=== PATIENT | female | born 1970 | race Caucasian/White ===

== ENCOUNTER 2018-09-30 16:09 | Emergency (ER) | payer OTHER ==
[2018-09-30 16:47] VITALS: BP 107/77
[2018-09-30] MEDS ORDERED: Tetan/Diph/Pertus SYR(Tdap)* 0.5 ML SYR(BOOSTRIX) use SYR IM ONE (16:53)
--- NOTE | 2018-09-30 17:15 | UC ---
Laceration HPI - HPI Summary HPI Summary: Pt presents with c/o laceration to left index finger. Pt was using a knife to cut head of lettuce from garden and cut her left index finger. Pt needs tetanus. Pt states that at work they applied a clot promoter. - History Of Current Complaint Chief Complaint: UCLaceration Stated Complaint: LEFT INDEX FINGER LACERATION Time Seen by Provider: 09/30/18 16:52 Hx Obtained From: Patient Hx Last Menstrual Period: 09/06 Laceration Location: Finger - left index finger Mechanism Of Injury: Sharp Trauma Onset/Duration: Sudden Onset Severity: Mild Pain Intensity: 4 Aggravating Factors: Position, Movement - Allergies/Home Medications Allergies/Adverse Reactions: Allergies Allergy/AdvReac Type Severity Reaction Status Date / Time clindamycin Allergy Rash Verified 09/30/18 16:42 Sulfa (Sulfonamide Allergy Rash Verified 09/30/18 16:42 Antibiotics) PMH/Surg Hx/FS Hx/Imm Hx Previously Healthy: Yes - Surgical History Surgical History: Yes Surgery Procedure, Year, and Place: tonsils, right breast 2015 - Family History Known Family History: Positive: Cardiac Disease - grandfather, Hypertension - mother Negative: Diabetes - Social History Occupation: Employed Full-time Lives: With Family Alcohol Use: Occasionally Substance Use Type: None Smoking Status (MU): Never Smoked Tobacco Have You Smoked in the Last Year: No - Immunization History Most Recent Influenza Vaccination: no Most Recent Tetanus Shot: unknown Review of Systems All Other Systems Reviewed And Are Negative: Yes Constitutional: Positive: Negative Skin: Positive: Other - laceration Eyes: Positive: Negative ENT: Positive: Negative Respiratory: Positive: Negative Cardiovascular: Positive: Negative Gastrointestinal: Positive: Negative Genitourinary: Positive: Negative Motor: Positive: Negative Neurovascular: Positive: Negative Musculoskeletal: Positive: Myalgia - at laceration site Neurological: Positive: Negative Psychological: Positive: Negative Is Patient Immunocompromised?: No Physical Exam Triage Information Reviewed: Yes Appearance: Well-Appearing Vital Signs: Initial Vital Signs Temp 98.5 F 09/30/18 16:43 Pulse 60 09/30/18 16:43 Resp 17 09/30/18 16:43 BP 107/77 09/30/18 16:43 Pulse Ox 100 09/30/18 16:43 Vital Signs Reviewed: Yes Eye Exam: Normal ENT Exam: Normal Dental Exam: Normal Neck exam: Normal Respiratory: Positive: No respiratory distress Musculoskeletal Exam: Normal Musculoskeletal: Positive: Strength Intact, ROM Intact Psychological Exam: Normal Skin Exam: Other - laceration dorsal aspect of left index finger at just proximal to MIP joint. Laceration Repair - Laceration Repair 1 Description: Linear Laceration Size After Repair: Length (cm) - 2, Width (mm) - 2, Depth (mm) - 3 Modified For Repair: No Cleansing Completed Via Routine Prep: Yes Irrigation With Pressure Irrigation Device: Yes Closure Material: Skin Adhesive, SteriStrips Closure Method: Single Layer Suture Of: Skin Laceration Course/Dx - Differential Dx - Laceration/Wound Differental Diagnoses: Laceration - Diagnosis Provider Diagnosis: Laceration of left index finger Discharge - Sign-Out/Discharge Documenting (check all that apply): Patient Departure All imaging exams completed and their final reports reviewed: No Studies - Discharge Plan Condition: Stable Disposition: HOME Patient Education Materials: Finger Laceration (ED), Skin Adhesive Care (ED), Steristrips (ED) Referrals: [facility] [Outside] - If Needed Non Staff,Doctor [Primary Care Provider] - Additional Instructions: Please change your dressing daily or more frequently if it becomes soiled or wet. Pleas wear the splint for 5-7 days. - Billing Disposition and Condition Condition: STABLE Disposition: Home
== END 2018-09-30 17:39 | disposition home or self-care (01) ==
LOC: UCCORT 16:09
DX: S61.211A Laceration without foreign body of left index finger without damage to nail, initial encounter (principal); W26.0XXA Contact with knife, initial encounter; Y93.89 Activity, other specified; Y92.007 Garden or yard of unspecified non-institutional (private) residence as the place of occurrence of the external cause; Z88.1 Allergy status to other antibiotic agents; Z88.2 Allergy status to sulfonamides
CPT/HCPCS: 12001; 90471; 90715; 99212; G0463